=== PATIENT | male | born 2005 | race Caucasian/White ===

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

== ENCOUNTER 2025-02-11 09:51 | Emergency (ER) | payer SELFPAY ==
[2025-02-11] MEDS ORDERED: Ibuprofen 800 MG TAB ONE (10:32)
== END 2025-02-11 11:21 | disposition home or self-care (01) ==
LOC: BURERS 09:51
DX: M25.551 Pain in right hip (principal)
CPT/HCPCS: 72170; 99283